=== PATIENT | female | born 1985 | race Caucasian/White ===

== ENCOUNTER 2020-07-24 10:54 | Inpatient (IN) ==
[2020-07-24 12:33] LABS: Basophils % 0.1 % (0.0-0.8); Hematocrit 37.4 VOL% (35.7-47.0); Hemoglobin 12.4 GM/DL (12.0-16.0); Immature Granulocytes % 1.4 %; Immature Granulocytes Absolute 0.11 #; Lymphocytes # 1.2 10*3/uL (1.4-4.0); Lymphocytes % 16.1 % (21.3-54.2); Mean Corpuscular HGB Conc 33.2 GM/DL (32-36); Mean Platelet Volume 9.8 FL (9.6-12.0); Monocytes % 3.6 % (1.7-12.7); Neutrophils % 78.8 % (38.7-73.9); Platelet Count 187 T/CUMM (130-400); Red Cell Distribution Width 13.8 % (9.3-17.3); White Blood Count 7.7 T/CUMM (4-12)
[2020-07-24 12:58] LABS: Alanine Aminotransferase 45 U/L (13-56); Albumin 2.1 G/DL (3.4-5.0); Alkaline Phosphatase 130 U/L (45-117); Aspartate Amino Transferase 44 U/L (0-37); Blood Urea Nitrogen 8 MG/DL (7-18); Calcium 8.4 MG/DL (8.5-10.1); Estimated Glom Filtration Rate 132 ML/MIN; Ferritin 243.6 ng/ml (8-252); Glucose 69 MG/DL (74-106); Osmolality,Calculated 270.7 MOS/KG (273-304); Total Protein 6.8 G/DL (6.4-8.3); Troponin I < 0.015 NG/ML (0.00-0.045)
[2020-07-24] MEDS: LACTATED RINGERS 1,000 ML IV SCH ×2 (13:27→22:53)
[2020-07-24 13:48] LABS: Bilirubin,Urine Negative (Negative); Blood, Urine Negative (Negative); Glucose,Urine (UA) Negative (Negative); Ketones,Urine 20 mg/dL (Negative); Mucus,Urine Occasional /LPF (Occasional); Nitrite,Urine Negative (Negative); Protein,Urine Negative; RBC,Urine 2 /HPF (0-4); Squamous Epithelial Cell,Urine Few /HPF (0-10); Urine Appearance Slightly Hazy (Clear); Urine Color Amber (Yellow); WBC,Urine 4 /HPF (0-6)
[2020-07-24] MEDS ORDERED: AZITHROMYCIN INJ 500 MG in SODIUM CHLORIDE 0.9% 250 ML IV SCH (15:00)
[2020-07-24] MEDS: DEXAMETHASONE 4 MG/1 ML VIAL IV SCH (15:42)
[2020-07-24] MEDS ORDERED: DEXTROSE 50% 25 GM/50 ML VIAL IV PRN (16:28)
[2020-07-24] MEDS ORDERED: GLUCAGON 1 MG VIAL IM PRN (16:28)
[2020-07-24] MEDS: cefTRIAXone 1,000 MG in SYRINGE 1 EACH IV SCH (17:16)
[2020-07-24] MEDS: PROPRANOLOL 40 MG TABLET PO SCH (20:10)
[2020-07-24] MEDS: FAMOTIDINE 20 MG TABLET PO SCH (20:11)
[2020-07-24] MEDS: ZINC SULFATE 220 MG CAPSULE PO SCH (20:11)
[2020-07-24] MEDS: ASCORBIC ACID 500 MG TABLET PO SCH (20:12)
[2020-07-24] MEDS: ALBUTEROL INHALER 18 GM INH SCH (20:15)
[2020-07-24] MEDS: ENOXAPARIN 40 MG/0.4 ML SYRINGE SUBCUT SCH (20:17)
[2020-07-24] MEDS ORDERED: ASCORBIC ACID 500 MG TABLET PO SCH (21:00)
[2020-07-25] MEDS: DEXAMETHASONE 4 MG/1 ML VIAL IV SCH ×2 (01:35→15:33)
[2020-07-25] MEDS: ALBUTEROL INHALER 18 GM INH SCH ×4 (01:46→18:33)
[2020-07-25] MEDS ORDERED: ACETAMINOPHEN 500 MG TABLET PO PRN (04:49)
[2020-07-25] MEDS: LACTATED RINGERS 1,000 ML IV SCH ×2 (07:25→18:21)
[2020-07-25 07:30] LABS: Ferritin 264.4 ng/ml (8-252)
[2020-07-25] MEDS: CHOLECALCIFEROL 1,000 UNIT TABLET PO SCH (09:59)
[2020-07-25] MEDS: ASPIRIN EC 81 MG TABLET PO SCH (09:59)
[2020-07-25] MEDS: PROPRANOLOL 40 MG TABLET PO SCH ×2 (09:59→20:04)
[2020-07-25] MEDS: ZINC SULFATE 220 MG CAPSULE PO SCH (09:59)
[2020-07-25] MEDS: MULTIVITAMIN (PRENATAL) TABLET PO SCH (10:00)
[2020-07-25] MEDS: MAGNESIUM GLUCONATE 500 MG TABLET PO SCH (10:00)
[2020-07-25] MEDS: ASCORBIC ACID 500 MG TABLET PO SCH ×2 (10:00→20:03)
[2020-07-25] MEDS: CETIRIZINE 10 MG TABLET PO SCH (10:00)
[2020-07-25] MEDS: cefTRIAXone 1,000 MG in SYRINGE 1 EACH IV SCH (15:39)
[2020-07-25] MEDS: AZITHROMYCIN INJ 500 MG in SODIUM CHLORIDE 0.9% 250 ML IV SCH (15:47)
[2020-07-25] MEDS: FAMOTIDINE 20 MG TABLET PO SCH (20:03)
[2020-07-25] MEDS: ENOXAPARIN 40 MG/0.4 ML SYRINGE SUBCUT SCH (20:04)
[2020-07-26] MEDS: ALBUTEROL INHALER 18 GM INH SCH ×4 (01:23→19:08)
[2020-07-26] MEDS: DEXAMETHASONE 4 MG/1 ML VIAL IV SCH ×2 (01:24→12:07)
[2020-07-26] MEDS ORDERED: BUTORPHANOL 2 MG/ML VIAL IV ONE (02:56)
[2020-07-26] MEDS ORDERED: ONDANSETRON 4 MG/2 ML VIAL IV ONE (02:57)
[2020-07-26] MEDS: LACTATED RINGERS 1,000 ML IV SCH ×2 (08:19→08:46)
[2020-07-26 08:49] LABS: Basophils % 0.2 % (0.0-0.8); Hematocrit 36.4 VOL% (35.7-47.0); Hemoglobin 11.9 GM/DL (12.0-16.0); Immature Granulocytes % 1.1 %; Immature Granulocytes Absolute 0.07 #; Lymphocytes # 1.2 10*3/uL (1.4-4.0); Lymphocytes % 17.7 % (21.3-54.2); Mean Corpuscular HGB Conc 32.7 GM/DL (32-36); Mean Corpuscular Volume 90.8 FL (87-102); Mean Platelet Volume 10.4 FL (9.6-12.0); Monocytes % 4.4 % (1.7-12.7); Neutrophils % 76.6 % (38.7-73.9); Platelet Count 246 T/CUMM (130-400); Red Blood Count 4.01 MC/CUMM (3.8-5.5); Red Cell Distribution Width 13.6 % (9.3-17.3); White Blood Count 6.7 T/CUMM (4-12)
[2020-07-26 09:16] LABS: Albumin 1.9 G/DL (3.4-5.0); Bilirubin,Total 0.4 MG/DL (0.2-1.0); Calcium 8.6 MG/DL (8.5-10.1); Osmolality,Calculated 269.1 MOS/KG (273-304); Total Protein 6.4 G/DL (6.4-8.3)
[2020-07-26] MEDS: CHOLECALCIFEROL 1,000 UNIT TABLET PO SCH (12:05)
[2020-07-26] MEDS: MULTIVITAMIN (PRENATAL) TABLET PO SCH (12:06)
[2020-07-26] MEDS: PROPRANOLOL 40 MG TABLET PO SCH ×2 (12:06→21:08)
[2020-07-26] MEDS: CETIRIZINE 10 MG TABLET PO SCH (12:06)
[2020-07-26] MEDS: MAGNESIUM GLUCONATE 500 MG TABLET PO SCH (12:06)
[2020-07-26] MEDS: ASCORBIC ACID 500 MG TABLET PO SCH ×2 (12:06→21:07)
[2020-07-26] MEDS: ASPIRIN EC 81 MG TABLET PO SCH (12:06)
[2020-07-26] MEDS: ZINC SULFATE 220 MG CAPSULE PO SCH (12:06)
[2020-07-26] MEDS: cefTRIAXone 1,000 MG in SYRINGE 1 EACH IV SCH (15:23)
[2020-07-26] MEDS: AZITHROMYCIN INJ 500 MG in SODIUM CHLORIDE 0.9% 250 ML IV SCH (16:00)
[2020-07-26] MEDS ORDERED: LACTATED RINGERS 1,000 ML IV PRN (18:12)
[2020-07-26] MEDS: ENOXAPARIN 40 MG/0.4 ML SYRINGE SUBCUT SCH (21:06)
[2020-07-26] MEDS: FAMOTIDINE 20 MG TABLET PO SCH (21:08)
[2020-07-27] MEDS: ALBUTEROL INHALER 18 GM INH SCH ×4 (01:52→19:07)
[2020-07-27 06:30] LABS: Basophils % 0.1 % (0.0-0.8); Hematocrit 33.4 VOL% (35.7-47.0); Hemoglobin 11.1 GM/DL (12.0-16.0); Immature Granulocytes % 1.4 %; Lymphocytes # 1.7 10*3/uL (1.4-4.0); Lymphocytes % 23.7 % (21.3-54.2); Mean Corpuscular HGB Conc 33.2 GM/DL (32-36); Mean Corpuscular Volume 89.8 FL (87-102); Mean Platelet Volume 9.5 FL (9.6-12.0); Monocytes % 7.7 % (1.7-12.7); Neutrophils % 67.1 % (38.7-73.9); Platelet Count 244 T/CUMM (130-400); Red Blood Count 3.72 MC/CUMM (3.8-5.5); Red Cell Distribution Width 13.4 % (9.3-17.3)
[2020-07-27 07:31] LABS: Calcium 8.5 MG/DL (8.5-10.1)
[2020-07-27 08:46] LABS: Osmolality,Calculated 277.5 MOS/KG (273-304)
[2020-07-27] MEDS: ASCORBIC ACID 500 MG TABLET PO SCH ×2 (09:02→21:04)
[2020-07-27] MEDS: MULTIVITAMIN (PRENATAL) TABLET PO SCH (09:03)
[2020-07-27] MEDS: CHOLECALCIFEROL 1,000 UNIT TABLET PO SCH (09:03)
[2020-07-27] MEDS: CETIRIZINE 10 MG TABLET PO SCH (09:03)
[2020-07-27] MEDS: ASPIRIN EC 81 MG TABLET PO SCH (09:04)
[2020-07-27] MEDS: PROPRANOLOL 40 MG TABLET PO SCH ×2 (09:04→21:06)
[2020-07-27] MEDS: MAGNESIUM GLUCONATE 500 MG TABLET PO SCH (09:04)
[2020-07-27] MEDS: ZINC SULFATE 220 MG CAPSULE PO SCH (09:04)
[2020-07-27] MEDS: DEXAMETHASONE 4 MG/1 ML VIAL IV SCH (09:09)
[2020-07-27] MEDS: cefTRIAXone 1,000 MG in SYRINGE 1 EACH IV SCH (15:44)
[2020-07-27] MEDS: AZITHROMYCIN INJ 500 MG in SODIUM CHLORIDE 0.9% 250 ML IV SCH (16:24)
[2020-07-27] MEDS: FAMOTIDINE 20 MG TABLET PO SCH (21:06)
[2020-07-27] MEDS: ENOXAPARIN 40 MG/0.4 ML SYRINGE SUBCUT SCH (21:06)
[2020-07-28] MEDS: ALBUTEROL INHALER 18 GM INH SCH ×2 (00:56→07:35)
[2020-07-28] MEDS: MAGNESIUM GLUCONATE 500 MG TABLET PO SCH (09:28)
[2020-07-28] MEDS: CHOLECALCIFEROL 1,000 UNIT TABLET PO SCH (09:28)
[2020-07-28] MEDS: MULTIVITAMIN (PRENATAL) TABLET PO SCH (09:28)
[2020-07-28] MEDS: PROPRANOLOL 40 MG TABLET PO SCH (09:29)
[2020-07-28] MEDS: ZINC SULFATE 220 MG CAPSULE PO SCH (09:29)
[2020-07-28] MEDS: ASCORBIC ACID 500 MG TABLET PO SCH (09:29)
[2020-07-28] MEDS: CETIRIZINE 10 MG TABLET PO SCH (09:29)
[2020-07-28] MEDS: DEXAMETHASONE 4 MG/1 ML VIAL IV SCH (09:29)
[2020-07-28] MEDS: ASPIRIN EC 81 MG TABLET PO SCH (09:29)
[2020-07-28 13:04] VITALS: BP 112/78
== END 2020-07-28 13:19 | disposition home or self-care (01) | DRG 831 ==
LOC: N.LDOUT 10:54 → N.LD 10:55
PROVIDERS: ADMIT Obstetrics & Gynecology; ATTEND Obstetrics & Gynecology

== ENCOUNTER 2020-08-02 21:08 | Inpatient (IN) ==
[2020-08-02] MEDS: LACTATED RINGERS 1,000 ML IV SCH (21:42)
[2020-08-02] MEDS ORDERED: AMPICILLIN INJ 2,000 MG in SODIUM CHLORIDE 0.9% 100 ML IV ONE (22:03)
[2020-08-02] MEDS ORDERED: OXYTOCIN/LR 20 UNIT/1,000 ML BAG IV ONE (22:10)
[2020-08-02] MEDS ORDERED: BUTORPHANOL 2 MG/ML VIAL IV PRN (22:17)
[2020-08-02] MEDS: OXYTOCIN/LR 20 UNIT/1,000 ML BAG IV SCH (22:26)
[2020-08-02 22:30] LABS: Basophils % 0.2 % (0.0-0.8); Eosinophils % 0.2 % (0.00-10.9); Hematocrit 36.4 VOL% (35.7-47.0); Hemoglobin 12.2 GM/DL (12.0-16.0); Immature Granulocytes % 1.2 %; Immature Granulocytes Absolute 0.14 #; Lymphocytes % 24.6 % (21.3-54.2); Mean Corpuscular HGB Conc 33.5 GM/DL (32-36); Monocytes % 6.3 % (1.7-12.7); Neutrophils % 67.5 % (38.7-73.9); Platelet Count 349 T/CUMM (130-400); Red Blood Count 4.09 MC/CUMM (3.8-5.5); Red Cell Distribution Width 13.7 % (9.3-17.3); White Blood Count 12.1 T/CUMM (4-12)
[2020-08-02 22:54] LABS: Alanine Aminotransferase 35 U/L (13-56); Albumin 2.2 G/DL (3.4-5.0); Alkaline Phosphatase 89 U/L (45-117); Aspartate Amino Transferase 19 U/L (0-37); Bilirubin,Total < 0.39 MG/DL (0.2-1.0); Blood Urea Nitrogen 10 MG/DL (7-18); Calcium 8.3 MG/DL (8.5-10.1); Estimated Glom Filtration Rate 133 ML/MIN; Glucose 118 MG/DL (74-106); Osmolality,Calculated 274.7 MOS/KG (273-304); Total Protein 6.1 G/DL (6.4-8.3)
[2020-08-02] MEDS: ONDANSETRON 4 MG/2 ML VIAL IV PRN (23:57)
[2020-08-03] MEDS ORDERED: FAMOTIDINE 20 MG/2 ML VIAL IV ONE (00:03)
[2020-08-03] MEDS ORDERED: diphenhydrAMINE 50 MG/1 ML VIAL IV PRN ×2 (00:03)
[2020-08-03] MEDS ORDERED: PROMETHAZINE 25 MG/1 ML VIAL IM ONE (00:03)
[2020-08-03] MEDS ORDERED: NALOXONE 0.4 MG/ML VIAL IV PRN (00:03)
[2020-08-03] MEDS ORDERED: CITRIC ACID/SODIUM CITRATE 30 ML UDCUP PO ONE (00:03)
[2020-08-03] MEDS ORDERED: hydrOXYzine HCL 25 MG/1 ML VIAL IM PRN (00:03)
[2020-08-03] MEDS ORDERED: ONDANSETRON 4 MG/2 ML VIAL IV ONE (00:03)
[2020-08-03] MEDS: AMPICILLIN INJ 1,000 MG in SODIUM CHLORIDE 0.9% 100 ML IV SCH ×3 (02:25→15:48)
[2020-08-03] MEDS: LACTATED RINGERS 1,000 ML IV SCH (02:26)
[2020-08-03] MEDS: fentaNYL 2 MCG/ROPIV 0.2% EPID 100 ML EPIDURAL SCH ×2 (03:10→11:05)
[2020-08-03 04:06] LABS: Bilirubin,Urine Negative (Negative); Blood, Urine Negative (Negative); Glucose,Urine (UA) Negative (Negative); Ketones,Urine Negative (Negative); Mucus,Urine Occasional /LPF (Occasional); Nitrite,Urine Negative (Negative); Protein,Urine Negative; Squamous Epithelial Cell,Urine Occasional /HPF (0-10); Urine Appearance CLEAR (Clear); Urine Color Yellow (Yellow); Urine Specific Gravity 1.011 (1.001-1.035); Urine Urobilinogen < 2.0 EU/DL (0.2-1.0)
[2020-08-03] MEDS: ePHEDrine 50 MG/ML VIAL IV PRN ×2 (04:06→04:21)
[2020-08-03] MEDS ORDERED: diphenhydrAMINE 2% CREAM 28 GM TUBE TOP PRN (08:55)
[2020-08-03] MEDS ORDERED: miSOPROStoL 200 MCG TABLET ONE (13:51)
[2020-08-03] MEDS ORDERED: OXYTOCIN/LR 0 UNIT/0 ML BAG IV ONE (13:51)
[2020-08-03] MEDS ORDERED: TRANEXAMIC ACID 1,000 MG/10 ML VIAL ONE (13:51)
[2020-08-03] MEDS ORDERED: CARBOPROST TROMETHAMINE 250 MCG/ML AMP IM ONE (13:52)
[2020-08-03] MEDS ORDERED: METHYLERGONOVINE 0.2 MG/1 ML AMP ONE (13:52)
[2020-08-03 14:20] LABS: Cord Arterial Blood HCO3 23.5 MMOL/L
[2020-08-03 14:21] LABS: Cord Venous Blood HCO3 27.6 MMOL/L; Cord Venous Blood PCO2 48.9 MMHG; Cord Venous Blood PO2 31.9 MMHG
[2020-08-03] MEDS: OXYTOCIN/LR 20 UNIT/1,000 ML BAG IV SCH (15:48)
[2020-08-03] MEDS ORDERED: IBUPROFEN 800 MG TABLET PO ONE (16:24)
[2020-08-03] MEDS: ONDANSETRON 4 MG/2 ML VIAL IV PRN (17:40)
[2020-08-03] MEDS: oxyCODONE/ACETAMINOPHEN 5-325 MG TABLET PO PRN (20:26)
[2020-08-03] MEDS: BENZOCAINE 20%/MENTHOL 0.5% SPRAY 56 GM CAN TOP PRN (21:11)
[2020-08-03] MEDS: DOCUSATE SODIUM 100 MG CAPSULE PO SCH (21:11)
[2020-08-04] MEDS: oxyCODONE/ACETAMINOPHEN 5-325 MG TABLET PO PRN ×3 (03:49→20:46)
[2020-08-04 07:15] LABS: Basophils % 0.3 % (0.0-0.8); Eosinophils % 0.2 % (0.00-10.9); Hematocrit 31.9 VOL% (35.7-47.0); Hemoglobin 10.6 GM/DL (12.0-16.0); Immature Granulocytes % 0.8 %; Immature Granulocytes Absolute 0.12 #; Lymphocytes # 2.5 10*3/uL (1.4-4.0); Lymphocytes % 17.4 % (21.3-54.2); Mean Corpuscular HGB Conc 33.2 GM/DL (32-36); Mean Corpuscular Volume 90.9 FL (87-102); Mean Platelet Volume 9.9 FL (9.6-12.0); Monocytes % 7.1 % (1.7-12.7); Neutrophils % 74.2 % (38.7-73.9); Platelet Count 217 T/CUMM (130-400); Red Blood Count 3.51 MC/CUMM (3.8-5.5); Red Cell Distribution Width 14.1 % (9.3-17.3); White Blood Count 14.3 T/CUMM (4-12)
[2020-08-04] MEDS: DOCUSATE SODIUM 100 MG CAPSULE PO SCH ×2 (08:59→20:45)
[2020-08-04] MEDS ORDERED: ENOXAPARIN 30 MG/0.3 ML SYRINGE SUBCUT SCH (14:00)
[2020-08-04] MEDS: IBUPROFEN 800 MG TABLET PO PRN (14:46)
[2020-08-05] MEDS: IBUPROFEN 800 MG TABLET PO PRN ×2 (01:29→09:37)
[2020-08-05] MEDS: oxyCODONE/ACETAMINOPHEN 5-325 MG TABLET PO PRN (04:21)
[2020-08-05 08:37] VITALS: BP 121/75
[2020-08-05] MEDS ORDERED: WITCH HAZEL PADS 100/JAR TOP PRN (09:18)
[2020-08-05] MEDS: DOCUSATE SODIUM 100 MG CAPSULE PO SCH (09:29)
[2020-08-05] MEDS: BENZOCAINE 20%/MENTHOL 0.5% SPRAY 56 GM CAN TOP PRN (09:29)
[2020-08-05] MEDS ORDERED: ACETAMINOPHEN/CODEINE 300-30 MG TABLET PO PRN (09:32)
== END 2020-08-05 13:00 | disposition home or self-care (01) | DRG 768 ==
LOC: N.LD 21:08 → N.OB 08-03 17:10
PROVIDERS: ADMIT Obstetrics & Gynecology; ATTEND Obstetrics & Gynecology